=== PATIENT | female | born 1950 | race Caucasian/White ===

== ENCOUNTER → 2022-11-23 | Day surgery (SDC) | payer MEDICARE ==
[~2022-11-23] MED LIST: LIDOCAINE 1% (10MG/ML) FOR IV START SQ ONE; PROPOFOL 10 MG/ML 20 ML VIAL IV ONE
[2022-11-23] MEDS: LACTATED RINGERS 1,000 ML IV SCH ×2 (11:15→12:35)
[2022-11-23 11:20] VITALS: RESP 16; TEMP 97.8
--- NOTE | 2022-11-23 12:52 | P.PCN ---
Date of Procedure: 11/23/22 Procedure(s) Performed: BRIEF HISTORY: Patient is a 72-year-old pleasant white female scheduled for an elective colonoscopy as a part of screening for colon cancer. PROCEDURE PERFORMED: Colonoscopy. PREOPERATIVE DIAGNOSIS: Screening for colon cancer. IV sedation per Anesthesia. PROCEDURE: After informed consent was obtained, the patient, was brought into the endoscopy unit. IV sedation was administered by Anesthesia under continuous monitoring. Digital rectal examination was normal. Initially the Olympus CF-160 flexible video colonoscope was then inserted in the rectum, gradually advanced into the cecum without any difficulty. Careful examination was performed as the scope was gradually being withdrawn. Ileocecal valve and the appendiceal orifice were visualized and appeared normal. Prep was excellent. Mucosa of the cecum, ascending colon, transverse colon, descending colon, sigmoid colon, and rectum appeared normal. Scattered sigmoid diverticulosis Retroflexion was performed in the rectum and no lesions were seen. The patient tolerated the procedure well. IMPRESSION: Normal-appearing colon from rectum to cecum with no evidence of colorectal neoplasia . Scattered sigmoid diverticulosis RECOMMENDATIONS: Findings of this examination were discussed with the patient as well as a family. She was advised to have a repeat screening colonoscopy at age 81..
[2022-11-23 13:21] VITALS: BP 116/59; PULSE 77
== END ==
LOC: ORWHC2ENDO 10:33
PROVIDERS: ATTEND Internal Medicine Gastroenterology
DX: Z12.11 Encounter for screening for malignant neoplasm of colon (principal); K57.30 Diverticulosis of large intestine without perforation or abscess without bleeding; I73.9 Peripheral vascular disease, unspecified; E78.5 Hyperlipidemia, unspecified; F32.A Depression, unspecified; F41.9 Anxiety disorder, unspecified; Z88.2 Allergy status to sulfonamides; Z79.82 Long term (current) use of aspirin; Z79.83 Long term (current) use of bisphosphonates; Z79.899 Other long term (current) drug therapy
CPT/HCPCS: J2704; G0121

== ENCOUNTER → 2024-08-12 | Outpatient (CLI) | payer MEDICARE ==
--- NOTE | 2024-08-12 13:41 | BD ---
EXAMINATION TYPE: Axial Bone Density DATE OF EXAM: 08/12/2024 CLINICAL HISTORY: 74 years old Female. ICD-10 CODE: Z78.0 ASYMPTOMATIC LU STATE , Additional Hist ory: Height: 5 ft 4 in Weight: 170 FRAX RISK QUESTIONS: Alcohol (3 or more units per day): no Family History (Parent hip fracture): no Glucocorticoids (More than 3mos): no (Ex: prednisone, prednisolone, methylprednisolone, dexamethasone, and hydrocortisone). History of Fracture in Adulthood: no Secondary Osteoporosis: 1. Type 1 Diabetes: no 2. Hyperthyroidism: no 3. Menopause before 45: no 4. Malnutrition: no 5. Chronic liver disease: no Rheumatoid Arthritis: no Current Tobacco Use: no RISK FACTORS HISTORY OF: Surgery to Spine/Hip(right/left)/Wrist (right/left): no MEDICATIONS: Thyroid Medications: none Osteoporosis Medications: yes Which medication: fosamax How Lon-2 years EXAM MEASUREMENTS: Bone mineral densitometry was performed using the [employer] System. Bone mineral density as measured about the Lumbar spine is: ----- L1-L4(G/cm2): 1.285 T Score Values are as follows: ----- L1: 0.2 ----- L2: 1.1 ----- L3: 0.8 ----- L4: 1.1 ----- L1-L4: 0.9 Z Score Values are as follows: ----- L1: 1.5 ----- L2: 2.4 ----- L3: 2.1 ----- L4: 2.5 ----- L1-L4: 2.2 prev done in [place] Bone mineral density about the R hip (g/cm2): 0.745 Bone mineral density about the L hip (g/cm2): 0.882 T Score values are as follows: -----R Neck: -2.1 -----L Neck: -1.1 -----R Total: -1.2 -----L Total: -0.1 Z Score values are as follows: -----R Neck: -0.5 -----L Neck: 0.4 -----R Total: 0.1 -----L Total: 1.2 prev done in [place] FRAX%s: The graph provided illustrates a 13.2 % chance for a major osteoporotic fx and a 3.2 % chance for the hips probability for fx in 10 years time. IMPRESSION: Osteopenia (T Score between -2.5 and -1). There is slightly increased risk of fracture and the patient may be considered for treatment. Re-Screen 2-5 years. NOTE: T-SCORE=SD OF THE YOUNG ADULT MEAN. [facility], , 08/12/2024 1:39 PM
--- NOTE | 2024-08-12 14:02 | CTL ---
EXAMINATION TYPE: CT Low Dose Lung DATE OF EXAM ORDERED: 08/12/2024 COMPARISON: None CLINICAL INDICATION: Female, 74 years old with history of Z12.31 SCREEN Z78.0 SREEN,Z12.2 SCREENING L ANJU CA; PHH, Lung CA screening, Lung cancer screening, History of Smoking/tobacco use. TECHNIQUE: Low dose computed tomography scan was performed through the chest at 1 mm thick sections a nd reconstructed images in multiple planes at 1 mm and [address] DLP: 43.[address] CTDI: 1.3 mGy Automated exposure control for dose reduction was used. CT DIAGNOSTIC QUALITY: Satisfactory FINDINGS: Nodules: No clinically significant pulmonary nodule. LUNGS: COPD: Severity: None Fibrosis: Severity: None Lymph nodes: None Other findings: None RIGHT PLEURAL SPACE: Effusion: None Calcification: None Thickening: None Pneumothorax: None LEFT PLEURAL SPACE: Effusion: None Calcification: None Thickening: None Pneumothorax: None HEART: Heart Size: Normal Coronary Calcification: None Pericardial Effusion: None OTHER FINDINGS: Upper abdomen: Small hiatal hernia suggested. Bony thorax: None Supraclavicular region: None Other: Mild atherosclerotic calcification of the aorta and its branches. Bovine aortic arch. IMPRESSION: No clinically significant pulmonary nodule. CT LUNG RAD AND CT CHEST RECOMMENDATION: Lung-Rad 1 Negative: Continue annual screening with LDCT in 12 months. S Modifier (other clinically significant findings): None [facility], , 08/12/2024 2:00 PM
--- NOTE | 2024-08-13 09:24 | MM ---
Reason for Exam: Screening (asymptomatic). Last mammogram was performed 1 year(s) and 8 month(s) ago. Patient History: Menarche at age 13. First Full-Term at age 22. Postmenopausal. Mother had breast cancer, age 58. Risk Values: Roxi 5 year model risk: 3.4%. NCI Lifetime model risk: 8.2%. Prior Study Comparison: 11/23/2021 Bilateral Screening Mammogram, [facility] [place]. 11/29/2022 Bilateral Screening Mammogram, [facility] [place]. Tissue Density: There are scattered areas of fibroglandular density. Findings: Analyzed By CAD. Right breast: There is no suspicious group of microcalcifications or new suspicious mass. Left breast: There is no suspicious group of microcalcifications or new suspicious mass. Overall Assessment: Negative, BI-RAD 1 Management: Screening Mammogram of both breasts in [address] [facility] will attempt to contact patient to return for supplemental views and ultrasound if indicated. Patient should continue monthly self-breast exams. A clinical breast exam by your physician is recommended on an annual basis. This exam should not preclude additional follow-up of suspicious palpable abnormalities. Note on Roxi scores and lifetime risk: 1. A Roxi score greater than 3% is considered moderate risk. If this is the case, consider specialist referral to assess eligibility for a risk reducing agent. 2. If overall lifetime risk for the development of breast cancer is 20% or higher, the patient may qualify for future screening with alternating mammogram and breast MRI. [facility], , 08/13/2024 9:22 AM. Electronically signed and approved by: Jluis Ta DO
== END | disposition home or self-care (01) ==
LOC: RADMAMWWP 12:40
PROVIDERS: ATTEND Family Medicine
DX: Z12.31 Encounter for screening mammogram for malignant neoplasm of breast (principal); Z12.2 Encounter for screening for malignant neoplasm of respiratory organs; R92.323 Mammographic fibroglandular density, bilateral breasts; Z80.3 Family history of malignant neoplasm of breast; M85.89 Other specified disorders of bone density and structure, multiple sites; Z78.0 Asymptomatic menopausal state; Z87.891 Personal history of nicotine dependence
CPT/HCPCS: 71271; 77063; 77067; 77080